=== PATIENT | male | born 1950 | race Caucasian/White ===

== ENCOUNTER 2017-08-25 15:53 | Emergency (ER) | payer MEDICARE, OTHER ==
[2017-08-25 17:03] VITALS: BP 175/103
--- NOTE | 2017-08-25 18:16 | UC ---
Throat Pain/Nasal Josh HPI - HPI Summary HPI Summary: 8 days ago patient began with upper respiratory tract infection symptoms nasal congestion minor cough nasal drip 4 days ago pain in face became severe had pressure in his eyes pressure in his ears is not getting any relief with over- the-counter medications Tylenol or ibuprofen - History of Current Complaint Chief Complaint: UCGeneralIllness Stated Complaint: SINUSES Time Seen by Provider: 08/25/17 18:08 Hx Obtained From: Patient Onset/Duration: Gradual Onset, Lasting Days, Worse Since - Past 3-4 days Severity: Moderate Cough: None Associated Signs & Symptoms: Positive: Sinus Discomfort, Nasal Discharge - Allergies/Home Medications Allergies/Adverse Reactions: Allergies Allergy/AdvReac Type Severity Reaction Status Date / Time No Known Allergies Allergy Verified 08/25/17 16:56 Home Medications: Home Medications Aspirin 81 mg CHEW TAB* 81 mg PO DAILY 08/25/17 [History Confirmed 08/25/17] Atorvastatin* [Lipitor 10 MG*] 10 mg PO 1700 08/25/17 [History Confirmed ] Losartan Potassium 100 mg PO DAILY 08/25/17 [History Confirmed 08/25/17] Psyllium CAMILLE* [Metamucil CAMILLE*] 1 pkt PO DAILY 08/25/17 [History Confirmed ] Vit C/E/Zn/Coppr/Lutein/Zeaxan [Preservision Areds 2 Softgel] 1 each PO DAILY [History Confirmed 08/25/17] PMH/Surg Hx/FS Hx/Imm Hx Previously Healthy: No Endocrine History: Dyslipidemia Cardiovascular History: Hypertension - Surgical History Surgical History: Yes Surgery Procedure, Year, and Place: Umbilical hernia repair 11/2016 - Family History Known Family History: Positive: None - Social History Occupation: Retired Lives: With Family Alcohol Use: None Substance Use Type: None Smoking Status (MU): Never Smoked Tobacco Review of Systems Constitutional: Chills, Fatigue Skin: Negative Eyes: Negative ENT: Ear Ache, Nasal Discharge, Sinus Congestion, Sinus Pain/Tenderness Respiratory: Negative Cardiovascular: Negative Gastrointestinal: Negative Genitourinary: Negative Motor: Negative Neurovascular: Negative Musculoskeletal: Negative Neurological: Headache Psychological: Negative Is Patient Immunocompromised?: No All Other Systems Reviewed And Are Negative: Yes Physical Exam Triage Information Reviewed: Yes Appearance: Well-Appearing, No Pain Distress, Well-Nourished Vital Signs: Initial Vital Signs Temp 98.5 F 08/25/17 16:48 Pulse 88 08/25/17 16:48 Resp 14 08/25/17 16:48 BP 175/103 08/25/17 16:48 Pulse Ox 97 08/25/17 16:48 Vital Signs Reviewed: Yes Eye Exam: Normal Eyes: Positive: Conjunctiva Clear ENT Exam: Normal ENT: Positive: Normal ENT inspection, Hearing grossly normal, Pharynx normal, Nasal congestion, Nasal drainage, TMs normal, Sinus tenderness, Uvula midline. Negative: Trismus, Muffled voice, Hoarse voice, Dental tenderness Dental Exam: Normal Neck exam: Normal Neck: Positive: Supple, Nontender, No Lymphadenopathy Respiratory Exam: Normal Respiratory: Positive: Chest non-tender, Lungs clear, Normal breath sounds, No respiratory distress, No accessory muscle use Cardiovascular Exam: Normal Cardiovascular: Positive: RRR, No Murmur, Pulses Normal, Brisk Capillary Refill Musculoskeletal Exam: Normal Musculoskeletal: Positive: Strength Intact, ROM Intact, No Edema Neurological Exam: Normal Neurological: Positive: Alert, Muscle Tone Normal Psychological Exam: Normal Skin Exam: Normal Throat Pain/Nasal Course/Dx - Course Assessment/Plan: Zithromax ,Flonase, Mucinex, avoid pseudoephedrine products, Tylenol, ibuprofen for pain increase; fluids follow with PCP - Differential Dx/Diagnosis Provider Diagnoses: Hypertension poor control, acute rhinosinusitis Discharge - Sign-Out/Discharge Documenting (check all that apply): Discharge - Discharge Plan Condition: Stable Disposition: HOME Prescriptions: Azithromycin TAB* [Zithromax TAB (Z-CAMILLE) 250 mg #6 tabs] 2 tab PO .TODAY, THEN 1 DAILY #1 camille Fluticasone NASAL SPRAY 50MCG* [Flonase NASAL SPRAY 50MCG*] 2 spray BOTH NARES DAILY #1 btl Patient Education Materials: Guaifenesin (By mouth), Sinusitis (ED), Hypertension (ED) Referrals: [facility] [place] [place] [facility] REFERRAL [Outside] - 1 Week Additional Instructions: Hollis just as a reminder the medications with pseudoephedrine, Sudafed or Afrin type sprays are the ones that can raise her blood pressure. Coricidin Coricidin HP BR safe to take with elevated blood pressure. Mucinex is safe to take with elevated blood pressure as well - Billing Disposition and Condition Condition: STABLE Disposition: HOME
== END 2017-08-25 18:28 | disposition home or self-care (01) ==
LOC: UCCORT 15:53
DX: J01.90 Acute sinusitis, unspecified (principal); I10 Essential (primary) hypertension
CPT/HCPCS: 99202; G0463